=== PATIENT | female | born 1960 | race Caucasian/White ===

== ENCOUNTER → 2017-05-26 | Outpatient (CLI) | payer BC ==
[~2017-05-26] MED LIST: ASTN; B-COTAB18 PO; CHOL100027 PO; CIPR-255 PO; CLOR7.5T14 PO; ESCI1TAB10 PO; ESTCR PV; MAGN1TAB41 PO; MELA1TAB54 PO; MULT-506 PO; NSNN50; OMEP40CA PO; OXYB5TAB74 PO; SUMA25TA12 PO
== END | disposition home or self-care (01) ==
LOC: C.LAB 10:27
PROVIDERS: ATTEND Nutritionist
DX: R53.83 Other fatigue (principal)